=== PATIENT | female | born 1985 | race Caucasian/White ===

== ENCOUNTER 2016-07-09 22:51 | Emergency (ER) | payer OTHER ==
[2015-10-27 11:14] VITALS: BMI 21.6
[~2016-07-09 22:51] MED LIST: IBUPROFEN600 MG PO; PERCOCET 5-3251 TAB PO
[2016-07-10 00:54] LABS: BASOPHILS 0.7 % (0.0-2.0); EOSINOPHILS 0.7 % (0-7); HEMATOCRIT 36.4 % (36.0-48.0); HEMOGLOBIN 12.5 g/dL (12-16); IMMATURE GRANULOCYTES 0.1 % (0-5); LYMPHOCYTES 20.5 % (15-50); MCHC 34.3 g/dL (31.0-37.0); MCV 84.5 fL (80.0-100.0); MEAN PLATELET VOLUME 9.9 fL (7.4-10.4); MONOCYTES 4.1 % (2-11); NEUTROPHILS 73.9 % (40-80); PLATELET COUNT 249 10x3/uL (130-400); RBC 4.31 10x6/uL (4.00-5.40); RDW 13.9 % (11.5-14.5); WBC 7.4 10x3/uL (4.8-10.8)
[2016-07-10 01:08] LABS: ALBUMIN 4.3 g/dL (3.4-5.0); ALKALINE PHOSPHATASE 57 U/L (46-116); ALT (SGPT) 18 U/L (10-68); BILIRUBIN - TOTAL 0.19 mg/dL (0.2-1.3); CALC OSMOLALITY 283 mosm/kg (275-300); CALCIUM 9.4 mg/dL (8.5-10.1); CARBON DIOXIDE 20.8 mmol/L (21.0-32.0); CHLORIDE - SERUM 103 mmol/L (98-107); CREATININE - SERUM 0.9 mg/dL (0.6-1.3); GLUCOSE 146 mg/dL (74-106); PROTEIN - SERUM 8.4 g/dL (6.4-8.2); SODIUM 141 mmol/L (136-145); UREA NITROGEN 13 mg/dL (7-18); eGFR NON AFRICAN AMERICAN 78 mL/min (90-120)
== END 2016-07-10 02:24 | disposition home or self-care (01) ==
LOC: D.ER 22:51
PROVIDERS: Family Medicine
DX: F41.9 Anxiety disorder, unspecified (principal); R06.4 Hyperventilation